=== PATIENT | female | born 1985 ===

== ENCOUNTER 2023-10-30 11:11 | Outpatient (CLI) | payer MEDICAID, SELFPAY ==
--- NOTE | 2023-10-30 11:30 | CRLHL7_ITS ---
For Patients: As a result of the Cures Act, medical imaging exams and procedure reports are released immediately into your electronic medical record. You may view this report before your referring provider. If you have questions, please contact your health care provider. INDICATION: First trimester scan, establish dates. COMPARISON: None. TECHNIQUE: Real-time campuzano-scale imaging of the pelvis was performed. FINDINGS: Sonographic imaging demonstrates a single living intrauterine gestation. The embryo demonstrates a regular cardiac rate measuring 147 beats per minute. The embryo`s crown-rump length measurement of 1.6 cm corresponds to a gestational age of 8 weeks 0 days with a sonographic due date of 06/10/2024. There is a normal-appearing yolk sac. There are no gross abnormalities noted within the embryo at this early state of development. The gestational sac has a normal appearance. There is no evidence of a perigestational hemorrhage. The amount of fluid within the sac appears appropriate for gestational age. The cervix is closed. The myometrium appears normal. The ovaries are of normal size. Corpus luteal cyst right ovary. There are no suspicious fluid collections noted in the cul-de-sac. IMPRESSION: Intrauterine located within the right side of a bicornuate uterus. Gestational age calculated at 8 weeks 0 days with a sonographic due date of 06/10/2024. Dictated by Diallo Curtis MD @ 11/01/2023 7:47:19 AM (Electronically Signed)
== END 2023-10-30 11:12 | disposition home or self-care (01) ==
LOC: US 11:13
PROVIDERS: Visit Provider Advanced Practice Midwife
DX: Z34.91 Encounter for supervision of normal pregnancy, unspecified, first trimester (principal); Z3A.08 8 weeks gestation of pregnancy
CPT/HCPCS: 76817

== ENCOUNTER 2023-11-27 10:45 | Outpatient (CLI) | payer MEDICAID, SELFPAY | END 2023-11-27 10:46 | disposition home or self-care (01) | LOC: NFLDREF 10:46 | PROVIDERS: PCP Obstetrics & Gynecology; Visit Provider Obstetrics & Gynecology | DX: O09.521 Supervision of elderly multigravida, first trimester (principal); Q51.3 Bicornate uterus; Z11.3 Encounter for screening for infections with a predominantly sexual mode of transmission; Z11.4 Encounter for screening for human immunodeficiency virus [HIV] | CPT/HCPCS: 86592; 86703; 86704; 86706; 86762; 86787; 86803; 86850; 86900; 86901; 87086; 87340; 87491; 87591 ==

== ENCOUNTER 2023-12-21 07:14 | Outpatient (CLI) | payer MEDICAID, SELFPAY ==
--- NOTE | 2023-12-21 07:15 | CRLHL7_ITS ---
For Patients: As a result of the Century Cures Act, medical imaging exams and procedure reports are released immediately into your electronic medical record. You may view this report before your referring provider. If you have questions, please contact your health care provider. CLINICAL HISTORY: Bicornuate uterus COMPARISON: none TECHNIQUE: Sandoval scale and color Doppler images were acquired of the kidneys and urinary bladder. FINDINGS: Sonographic images reveal a symmetric appearance of the kidneys. There is no evidence of hydronephrosis, mass or calculus. The right kidney measures 11.3cm in length and the left kidney measures 12.2cm in length. The renal cortex appears of normal thickness. Normal color Doppler imaging of both kidneys. The urinary bladder appears normal. Bladder volume 37 cc. There is no evidence of bladder calculi or diverticula. IMPRESSION: Normal renal ultrasound. Dictated by Diallo Curtis MD @ 12/21/2023 8:21:17 AM (Electronically Signed)
== END 2023-12-21 07:15 | disposition home or self-care (01) ==
LOC: US 07:14
PROVIDERS: Visit Provider Obstetrics & Gynecology
DX: O09.522 Supervision of elderly multigravida, second trimester (principal); O34.02 Maternal care for unspecified congenital malformation of uterus, second trimester; Z3A.15 15 weeks gestation of pregnancy
CPT/HCPCS: 76770

== ENCOUNTER 2024-01-20 08:26 | Outpatient (CLI) | payer MEDICAID, SELFPAY | END 2024-01-20 08:27 | disposition home or self-care (01) | LOC: US 08:27 | PROVIDERS: Visit Provider Obstetrics & Gynecology | DX: O09.522 Supervision of elderly multigravida, second trimester (principal); Z3A.19 19 weeks gestation of pregnancy | CPT/HCPCS: 76811; 76817 ==

== ENCOUNTER 2024-03-18 12:14 | Outpatient (CLI) | payer MEDICAID, SELFPAY ==
--- NOTE | 2024-03-18 12:15 | CRLHL7_ITS ---
For Patients: As a result of the Century Cures Act, medical imaging exams and procedure reports are released immediately into your electronic medical record. You may view this report before your referring provider. If you have questions, please contact your health care provider. INDICATION: Third trimester scan, evaluate growth. Bicornuate uterus. COMPARISON: 10/30/2023 TECHNIQUE: Real time campuzano scale imaging of the fetus was performed. FINDINGS: Sonographic imaging demonstrates a single living intrauterine gestation. Fetus demonstrates a regular cardiac rate of 144 beats per minute. Fetus has a vertex position. The placenta lies anteriorly. Amniotic fluid volume appears normal and there is a single deepest vertical pocket: 6.7 cm. The estimated weight is 1216gm which lies at the 51st %. BPD 75th percentile. HC is 63rd percentile. AC 72nd percentile. FL 12th percentile. The HC/AC ratio measures 1.09 range (1.00-1.21). IMPRESSION: Sonographic gestational age 28 weeks 5 days and sonographic due date 06/05/2024. Good correlation with dates. Estimated weight 51st percentile. Abdominal circumference 72nd percentile. Dictated by Diallo Curtis MD @ 03/20/2024 8:11:07 AM (Electronically Signed)
== END 2024-03-18 12:15 | disposition home or self-care (01) ==
LOC: US 12:15
PROVIDERS: Visit Provider Obstetrics & Gynecology
DX: Q51.3 Bicornate uterus (principal); Z3A.28 28 weeks gestation of pregnancy
CPT/HCPCS: 76816; 86592

== ENCOUNTER 2024-05-02 13:52 | Outpatient (CLI) | payer MEDICAID, SELFPAY ==
--- NOTE | 2024-05-02 13:45 | CRLHL7_ITS ---
For Patients: As a result of the Century Cures Act, medical imaging exams and procedure reports are released immediately into your electronic medical record. You may view this report before your referring provider. If you have questions, please contact your health care provider. OB ULTRASOUND 05/02/2024 LAURIE by LMP: 06/10/2024. GA: 34w, 3d. COMPARISONS: 03/18/2024, 01/20/2024 and 10/30/2023. INDICATION: Growth. Bicornuate uterus. FINDINGS: position: Vertex. Cervix: Not visualized. Technique: Transabdominal. Placenta: Anterior. Technique: Transabdominal. Amniotic Fluid: 8.31cm SDP (greater than/equal to: 2- less than 8 cm). TABBY: 23.8 cm. Doppler: Heart Rate: 126 bpm. BPD: 8.8 cm. 35w 3d, 76 percent. HC: 32 cm. 36w 0d, 55 percent. AC: 30.1 cm. 34w 0d, 43 percent. FL: 5.9 cm. 30w 6d, <3 percent. FL/AC: 19.6 percent. HC/AC Ratio: 1.1. EFW: 2197 grams, 4 lbs, 13 oz. Age by this US: 34 weeks 1 day. LAURIE by this US: 06/12/2024. Percentile by LAURIE: 19 percent. COMMENTS: There is a possible nuchal cord present noted by the technologist. IMPRESSION: 1. Single live intrauterine gestation of 34 weeks 1 day with LAURIE of 06/12/2024. Estimated weight 2197 grams which lies at the 19th percentile. 2. Single deepest pocket is 8.3 cm reflecting polyhydramnios. 3. Possible nuchal cord noted by technologist. Meagan Vela M.D. Diagnostic/Breast Radiologist [email or web address] JONA/[email or web address] / DW/Dictated by: Meagan Vela MD @ 05/04/2024 7:32:00 AM (Electronically Signed)
== END 2024-05-02 13:53 | disposition home or self-care (01) ==
LOC: US 13:52
PROVIDERS: Visit Provider Obstetrics & Gynecology
DX: O09.523 Supervision of elderly multigravida, third trimester (principal); Q51.3 Bicornate uterus; Z3A.34 34 weeks gestation of pregnancy
CPT/HCPCS: 76816

== ENCOUNTER 2024-05-16 16:04 | Outpatient (CLI) | payer MEDICAID, SELFPAY ==
[2024-05-18 02:43] LABS: Strep B DNA Probe Negative (Negative)
[2024-05-19 08:27] LABS: Strep B Susceptibility Needed? No
== END 2024-05-16 16:05 | disposition home or self-care (01) ==
LOC: NFLDREF 16:04
PROVIDERS: Visit Provider Obstetrics & Gynecology
DX: Z34.93 Encounter for supervision of normal pregnancy, unspecified, third trimester (principal); Z3A.36 36 weeks gestation of pregnancy
CPT/HCPCS: 87081; 87653

== ENCOUNTER 2024-05-23 12:07 | Outpatient (CLI) | payer MEDICAID, SELFPAY ==
--- NOTE | 2024-05-23 12:15 | CRLHL7_ITS ---
For Patients: As a result of the Century Cures Act, medical imaging exams and procedure reports are released immediately into your electronic medical record. You may view this report before your referring provider. If you have questions, please contact your health care provider. OB ULTRASOUND Single. INDICATION: Follow-up growth. COMPARISON: 05/02/2024. CERVIX: Not visualized. POSITIONING: Vertex. AMNIOTIC FLUID: 6.5 cm. PLACENTA: Technique: Transabdominal. PLACENTA POSITION: Anterior. DOPPLER: heart rate: 149 bpm. Biometry: BPD: 9.1 cm. 37 w, 1 d, 60%. HC: 33.4 cm. 38 w, 1 d, 44%. AC: 32.7 cm. 36 w, 4 d, 42%. FL: 6.5 cm. 33 w, 5 d, <3%. FL/AC ratio: 19.96 percent. HC/AC ratio: 1.02. EFW: 2846 g. Weight: 6 lbs, 4 oz. age by this US: 36 w, 3 d. LAURIE by this US: 06/17/2024. Percentile by LAURIE: 25%. IMPRESSION: 1. Estimated weight is at the 25th percentile. 2. Femur length less than 3rd percentile. Arvind Kennedy M.D. Body/Diagnostic Radiologist [email or web address] YUE/[email or web address] arredondo/Dictated by: Arvind Kennedy MD @ 05/24/2024 10:15:00 AM (Electronically Signed)
== END 2024-05-23 12:08 | disposition home or self-care (01) ==
LOC: US 12:07
PROVIDERS: Visit Provider Obstetrics & Gynecology
DX: O09.523 Supervision of elderly multigravida, third trimester (principal); Z3A.36 36 weeks gestation of pregnancy
CPT/HCPCS: 76816

== ENCOUNTER 2024-05-25 00:23 | Inpatient (IN) | payer MEDICAID, SELFPAY ==
[2024-05-24 23:48] VITALS: BP 137/91; PULSE 76
[2024-05-24 23:49] VITALS: PULSE 70; O2SAT 100
[2024-05-24 23:54] VITALS: PULSE 72; O2SAT 100
[2024-05-24 23:59] VITALS: PULSE 76; O2SAT 99
[2024-05-25] VITALS (90 sets, daily range): BP systolic 61–182; BP diastolic 35–88; PULSE 57–190; RESP 14–16; TEMP 36.4–36.9; O2SAT 82–100; BMI 26.2
[2024-05-25 00:36] LABS: Amnisure Rom* Negative
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
[2024-05-25 05:46] LABS: Basophils Absolute Auto 0.02 K/uL (0.00-0.30); Basophils Percent Auto 0.2 % (0.0-3.0); Eosinophils Absolute Auto 0.11 K/uL (0.00-0.50); Eosinophils Percent Auto 1.2 % (0.0-7.0); Hematocrit 34.5 % (33.0-51.0); Hemoglobin* 11.6 gm/dL (12.0-16.0); Immature Granulocytes Abs Auto 0.05 K/uL (0.00-0.30); Immature Granulocytes Pct Auto 0.5 %; Lymphocytes Percent Auto 22.2 % (20-44); Mean Corpuscular HGB Conc 34 gm/dL (32-36); Mean Corpuscular Hemoglobin 31 pg (26-34); Mean Corpuscular Volume 91 fL (80-100); Monocytes Percent Auto 6.3 % (0.0-11.0); Neutrophils Absolute Auto 6.57 K/uL (1.7-7.0); Neutrophils Percent Auto 69.6 % (42.0-72.0); Platelet Count* 225 K/uL (140-440); RDW Coefficient of Variation % 12.4 % (11.5-15.5); White Blood Count* 9.45 K/uL (4.50-11.00)
[2024-05-25 05:47] LABS: Slide Review Reflex No
--- NOTE | 2024-05-25 08:34 | PM.OBPNL ---
Subjective Time Seen by Provider: 08:34 Date Seen: 05/25/24 Narrative: Cely is a 38-year-old at 37w5d gestational age admitted for spontaneous onset of labor. is complicated by AMA, bicornuate uterus, history of precipitous delivery and tobacco use disorder. She presented overnight with mild contractions, was found to be 6 cm dilated and did make change to 6.5 cm. Since that time, she notes her contractions have decreased in frequency significantly. They were never particularly painful, now described as cramping or discomfort as the baby moves. Denies vaginal bleeding or leaking of fluid. Endorses active movement. Cely is apprehensive about how to proceed. She is understandably frustrated that her contractions seem to have decreased in frequency. We discussed options for management, including continued expectant management versus augmentation of labor. Given her degree of advanced cervical dilation, I would not advocate for discharge to home. Patient agrees, notes she would not feel safe given her history to discharge. We again discussed expectant management, augmentation with Pitocin or amniotomy. She also would desire an epidural for her delivery, but notes she is highly motivated to continue movement and she does not want be bed-bound for several hours. We discussed the risks/benefits of placing an epidural prior to amniotomy versus waiting till after, knowing we could miss our opportunity for neuro axial analgesia. After discussion, she would like to proceed with []. Objective Exam: General: Alert and oriented, in no acute distress Psych: Appropriate mood and affect Abdomen: Gravid. Cervix: 6.5/90/-1. heart rate: Category 1, baseline 120bpm, moderate variability, accelerations present, decelerations absent. After epidural placement, I returned to bedside where exam was unchanged and amniotomy was performed with return of clear fluid. Deloit: Dolly Q2-6 minutes Vital Signs: Last Vital Signs Temp 98 F 05/25/24 07:52 Pulse 70 05/25/24 07:52 Resp 16 05/25/24 07:52 BP 110/73 05/25/24 07:52 Pulse Ox 99 05/25/24 06:11 Contractions Contraction intensity: Moderate Assessment Station: -2 Heart Rate Baseline: 120 Monitor Accelerations: Present Monitor Decelerations: None Plan Plan: Cely is a 38-year-old at 37w5d gestational age admitted for spontaneous onset of labor. is complicated by AMA, bicornuate uterus, history of precipitous delivery and tobacco use disorder. Labor course complicated by labor dystocia in the active phase, at 6.5cm dilated. After extensive counseling, we mutually agreed to proceed with augmentation of labor with AROM. Patient decided to proceed with epidural placement prior. She is now comfortable, s/p epidural placement. AROM performed with return of clear fluid. Anticipate next cervical exam in 2 hours, sooner as clinically indicated. BT A+, GBS negative.
[2024-05-25] MEDS: LACTATED RINGERS 1000 ML 1,000 ML 1200 ML IV (09:05)
[2024-05-25] MEDS: ROPIVACAINE 0.2% 100 ml 100 ML 8 MG EPIDURAL (10:01)
[2024-05-25] MEDS: LIDOCAINE 2% (PF) 5 ML VIAL EPIDURAL (10:02)
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
[2024-05-25] MEDS: fentaNYL 100 MCG/2 ML inj EPIDURAL (10:20)
[2024-05-25] MEDS: LACTATED RINGERS 1000 ML 1,000 ML 125 ML IV (10:30)
[2024-05-25] MEDS: PHENYLEPHRINE 100 MCG/ML SYRINGE IVP ×4 (10:31→11:36)
[2024-05-25] MEDS: ePHEDrine sulfate 5 MG/ML inj 10 MG IVP ×2 (10:58→11:16)
[2024-05-25] MEDS: OXYTOCIN 30 unit/500 ML in NS 30 UNIT/500 ML BAG 300 UNIT IVPB (13:32)
--- NOTE | 2024-05-25 14:42 | W.PM.VAGDEL1 ---
Procedure Procedure Done: Global Intrapartal Events: Labor Augmentation Delivery augmentation: rupture of membranes Delivery monitor: external FHT Route of delivery: Laceration description: None Estimated blood loss (mL): 150 Anesthesia type: Epidural Disposition: floor Complications: None Narrative: Cely is a 38-year-old at 37w5d gestational age admitted for spontaneous onset of labor. is complicated by AMA, bicornuate uterus, history of precipitous delivery and tobacco use disorder. heart tones on admission were category 1. Her labor was was augmented with AROM after labor dystocia in the active phase. Epidural was utilized for pain management. Status of bag of stafford: AROM occurred intrapartum with return of clear fluids. heart tones during active labor were category 1. She was complete at 1321 and started pushing at 1329. She made excellent descent throughout the second stage of labor, and had a normal spontaneous vaginal delivery at 1330. heart tones during second stage of labor were category 1 to 2, variable deceleration noted with her last expulsive effort. Baby delivered OA, restituted ANNETTA and the anterior and posterior shoulders delivered without difficulty. Nuchal cord: none. The cord was clamped and cut after delayed cord clamping. Active management of the third stage occurred with IV pitocin and gentle cord traction and the placenta delivered spontaneous and intact at 1338. Cord gases sent: no Cord blood sent for infant ABO: no details: - Liveborn male fetus at 1330 - weight: 2835g - APGARs were 8 and 9 at 1 and 5 minutes respectively Perineum and vagina were inspected, and the following lacerations were noted: none, no repair was required. Excellent hemostasis was noted. The following counts were correct: sponges, needles, instruments. Mother and in stable condition following the . Gender: Male presentation: vertex Placental Delivery Description: Spontaneous Cord Description: 3 Vessels
[2024-05-26 01:09] VITALS: BP 108/73; PULSE 82; RESP 18; TEMP 36.8
[2024-05-26 05:59] VITALS: BP 108/67; PULSE 88; RESP 18; TEMP 36.8
[2024-05-26 06:57] LABS: Hemoglobin* 10.6 gm/dL (12.0-16.0)
[2024-05-26 08:45] VITALS: BP 130/85; PULSE 77; RESP 16; TEMP 36.4; O2SAT 99
--- NOTE | 2024-05-26 09:29 | PM.OBPNVD1 ---
OB - PN:Subj Subjective Date Seen: 05/26/24 Patient comments OB post-: no complaints, pain well controlled, tolerating diet and flatus present [place] status: and doing well [place] feeding status: exclusively (pumping and feeding expressed milk) Narrative: Cely feels well.? Her pain is well controlled with current medications.? She has no new complaints.? Urinary output is adequate and she is voiding without difficulty.? Has a good appetite, is tolerating a general diet, is passing flatus, and has had a bowel movement.?States that she has painful cramping r/t her bicornate uterus and is using heat and hydrotherapy for this pain. Has small amount of rubra lochia.? She is ambulating well.?She is planning to work with for help with latching today. Continue to monitor blood pressures and consider labs if they continue to be elevated. OB - PN: Obj Exam Physical Exam: Vital signs: Temp Pulse Resp BP Pulse Ox O2 Del Method 98.2 F 77 16 130/85 99 Room Air 05/26/24 05:59 05/26/24 08:45 05/26/24 08:45 05/26/24 08:45 05/26/24 08:45 05/26/24 08:45 Narrative: GENERAL APPEARANCE:? normal affect, alert, no distress? MOOD:? appropriate? CHEST:? clear to auscultation and percussion? HEART:? regular rate and rhythm? ABDOMEN:? soft, non-tender the uterine fundus is U/2 and is appropriate for the stage of recovery.? PERINEUM:? mild edema of the perineum, there is a intact perineum that is healing well.? EXTREMITIES:? normal and no edema? OB - PN: Obj Data Labs Labs: Laboratory Results - last 24 hr 05/26/24 06:35 Hgb 10.6 L OB - PN: A/P Delivery Assessment and Plan (1) : Status: Inactive (2) Tobacco abuse: Status: Acute (3) care following vaginal delivery: Status: Acute (4) Lactating mother: Status: Acute (5) Bicornuate uterus: Status: Acute Plan day: 1 Plan: routine care Comments: Anticipate discharge home tomorrow.
[2024-05-26 13:15] VITALS: BP 114/68; PULSE 72; RESP 16; TEMP 36.3; O2SAT 97
[2024-05-26] MEDS: DOCUSATE SODIUM 100 MG CAPSULE PO (17:14)
[2024-05-26 17:45] VITALS: BP 112/71
[2024-05-26 22:03] VITALS: BP 116/79; PULSE 76; RESP 16; TEMP 36.6; O2SAT 97
[2024-05-27 01:01] LABS: Rapid Plasma Reagin (RPR) Non Reactive (Non Reactive)
--- NOTE | 2024-05-27 08:12 | P.DS_ITS ---
DS: Providers Provider Date Seen: 05/27/24 Date of admission: 05/25/24 00:23 Primary care physician: Not a Local Provider Admitting Clinician: Piedad Hauser MD Attending Physician on discharge: Sujatha Agosto CNM DS: Diagnosis Discharge Diagnosis (1) care following vaginal delivery: Status: Acute (2) Lactating mother: Status: Acute Exam Narrative: Exam Narrative: GENERAL APPEARANCE:? normal affect, alert, no distress MOOD:? appropriate CHEST:? clear to auscultation HEART:? regular rate and rhythm ABDOMEN:? soft, non-tender the uterine fundus is At Umbilicus, Midline and is appropriate for the stage of recovery. PERINEUM:? mild edema of the perineum. EXTREMITIES:? normal and no edema Const: Vital Signs, click to edit/add: Vital Signs - 24 hr 05/26/24 08:45 05/26/24 13:15 05/26/24 17:45 Temperature 97.5 F L 97.3 F L Pulse Rate [Blood Pressure Cuff] 77 72 Respiratory Rate 16 16 Blood Pressure [Le ft Arm] 130/85 114/68 112/71 Pulse Oximetry 99 97 Oxygen Delivery Me thod Room Air Room Air 05/26/24 22:03 Temperature 98 F Pulse Rate [Blood Pressure Cuff] 76 Respiratory Rate 16 Blood Pressure [Le ft Arm] 116/79 Pulse Oximetry 97 Oxygen Delivery Me thod Room Air Documenting provider has reviewed patient's vital signs: yes OB - DS: Summary Hospital Course Hospital Course: Cely is a 38 y.o. G 3 P 2 who was admitted to [facility] for spontaneous onset of labor. ?She had a NVD that was uncomplicated. The patient feels well. ?The pain is well controlled with current medications. ?She has no new complaints. ?She is breast feeding and reports things are going well. the patient has don e well.? Vitals have been stable.? She has remained afebrile.? Has a good appetite, is tolerating a general diet. ?She is voiding without difficulty.? She is passing gas and has not had a bowel movement.? She is ambulating and denies any dizziness.? Has small amount of rubra lochia. She is planning NFP/abstinence for prevention. Problems: none Discharge home with baby.? Follow up in 2 weeks and 6 weeks.? , may see if needed? Hgb 10.6. ?? For pain control of perineum, breast and pelvic pain, take 600 mg Ibuprofen every 6 hours as needed by mouth or 1000 mg acetaminophen (Tylenol) every 6 hours by mouth as needed. You can alternate these so you are taking something every 3 hours as needed. A heating pad can also be used for your abdomen or breasts. You may also take docusate sodium up to twice daily to soften your stools and help to prevent constipation. You may wean off of it when your stools return to normal.? Peripartum Data delivery method: Vaginal Laceration description: None complications: none Infant Gender: Male Infant Discharge Plan: Home Status at Discharge Functional status at discharge: independent ambulation Overall status at discharge: patient is progressing back to baseline Time Spent with Patient Time attestation: Total time spent providing and/or coordinating discharge services: Time spent: Less than 30 minutes Discharge Plan Discharge Disposition: Home, Self-Care Date of Admission: 05/25/24 00:23 Attending Provider on Discharge: Sujatha Agosto Primary Care Provider: Provider,Not a Local Condition: Stable Anticipated Discharge Date/Time: 05/27/24 12:00 Discharge Medications: New acetaminophen 500 mg Tablet 1,000 mg PO Q6H PRNQty: 0 0RF docusate sodium 100 mg Capsule 100 mg PO DAILY Qty: 60 0RF ibuprofen 600 mg Tablet 600 mg PO Q6H PRNQty: 60 0RF Continued One Daily [id number] mg-mcg-mg combo pack 1 pkg PO DAILY calcium carbonate-vitamin D3 [Calcium with Vitamin D] 600 mg-10 mcg (400 unit) tablet 1 tab PO QDAY ascorbic acid (vitamin C) 500 mg tablet 1 g PO Q6H fluticasone propionate [Allergy Relief (fluticasone)] 50 mcg/actuation spray,suspension 1 spray intranasal QDAY Qty: 16 1RF Rx Instructions: administer into each nostril ferrous sulfate [Feosol] 325 mg (65 mg iron) tablet 325 mg PO QDAY Discharge Orders: Discharge Order (Routine); Ordered 05/27/24 Ordered By: Sujatha Agosto Patient Education: OB Over the Counter Medication Information, OB Vaginal/Breast Feeding Additional Instructions: Discharge instructions were reviewed with the patient including signs and symptoms of infection and home going medications Nothing vaginally for 6 weeks: no tampons or intercourse Off Work or School for 6 weeks 2-week visit: discuss infant feeding concerns, review control options and screen for anxiety/depression. 6-week visit for an annual exam. consultation services are available to all mothers and babies for the first year after delivery.? To make an appointment, please call [phone]. Activity Level: Activity as Tolerated Discharge Diet: Regular Follow Up Appointments: [facility] [Provider Group] Forms: [employer] Info Instructions
[2024-05-27 08:15] VITALS: BP 118/78; PULSE 80; RESP 16; TEMP 36.7; O2SAT 99
== END 2024-05-27 12:35 | disposition home or self-care (01) | DRG 807 ==
LOC: OB OUT 00:24 → OB 00:24
PROVIDERS: Obstetrics & Gynecology; Admitting Provider Obstetrics & Gynecology; Visit Provider Obstetrics & Gynecology
DX: O34.03 Maternal care for unspecified congenital malformation of uterus, third trimester (principal); Z37.0 Single live birth; Q51.3 Bicornate uterus; O66.9 Obstructed labor, unspecified; O99.334 Smoking (tobacco) complicating childbirth; F17.210 Nicotine dependence, cigarettes, uncomplicated; O99.02 Anemia complicating childbirth; D64.9 Anemia, unspecified; F10.11 Alcohol abuse, in remission; Z91.51 Personal history of suicidal behavior; Z91.414 Personal history of adult intimate partner abuse; Z3A.37 37 weeks gestation of pregnancy
CPT/HCPCS: 01967; 36415; 84112; 85018; 85025; 86592; 86850; 86900; 86901; 88307; G0463; A9270; J2371; J2795; J3010; J7120

== ENCOUNTER 2025-03-03 13:57 | Outpatient (CLI) | payer MEDICAID, SELFPAY | END 2025-03-03 13:58 | disposition home or self-care (01) | PROVIDERS: Visit Provider Nurse Practitioner Family | DX: R03.0 Elevated blood-pressure reading, without diagnosis of hypertension (principal); Z13.6 Encounter for screening for cardiovascular disorders; R53.83 Other fatigue | CPT/HCPCS: 80053; 80061; 84443 ==